=== PATIENT | male | born 1960 | race Caucasian/White ===

== ENCOUNTER → 2016-11-04 | Day surgery (SDC) | payer MEDICARE ==
[~2016-11-04] MED LIST: ASPIRIN81 MG PO; CLOPIDOGREL75 MG PO; DAZIDOX10 MG PO; DESYREL100 MG PO; FLEXERIL PO; LAMOTRIGINE100 MG PO; LIPITOR40 MG PO; MOBIC PO; MULTIVITAMIN1 UDCAP PO; NEURONTIN300 MG PO; NITROGLYCERIN0.4 MG SL; OXYCONTIN40 MG PO; PLAVIX PO; TIZANIDINE HCL4 M1 PO
--- NOTE | ~2016-11-04 | OR ---
Unit #: [id number] #: [id number] Patient: SOCORRO BALDERAS [id number] [address] [place], [place] [address] [id number] MR#: [id number] NAME: SOCORRO BALDERAS ROOM: Date of Procedure: 11/04/2016 Admission Date: 11/04/2016 Surgeon: Mendoza Daniel M.D. : 1960 Attending Physician: Mendoza Daniel M.D. Primary Care Physician: Theo Metzger M.D. OPERATIVE REPORT PREOPERATIVE DIAGNOSES Postlumbar fusion, degenerative disk disease, spinal stenosis, back pain, radiculopathy. POSTOPERATIVE DIAGNOSES Postlumbar fusion, degenerative disk disease, spinal stenosis, back pain, radiculopathy. PROCEDURE PERFORMED Caudal epidural steroid injection with intravenous sedation and fluoroscopic guidance for needle localization. INDICATIONS FOR PROCEDURE The patient is a 55-year-old male with previously mentioned diagnosis. He had a lumbar fusion, but unfortunately there is a pseudoarthrosis causing chronic pain. Year ago, he was treated a caudal epidural steroid injection and was given the first significant relief he has gotten in many many years. He had 80% relief for several months and then had return of the symptoms. He is not follow up until recently. He is treated medically as well. Based on his good response, we are going to proceed with a repeat caudal epidural steroid injection at this point and he may need on a p.r.n. basis going forward. DESCRIPTION OF PROCEDURE The patient was placed in a prone position. Standard monitors were applied. 4 mg of Versed were given for sedation and anxiolysis, which were adequate. Vital signs remained stable. Sterile prep and drape of the sacral area was then performed. The skin then overlying the sacral hiatus was localized with 1% lidocaine. An 18-gauge [employer] needle was then advanced via loss of resistance technique and via the sacral hiatus. After confirming proper positioning with fluoroscopy and radiographic contrast, 80 mg of Depo-Medrol and 6 mL of 0.125% bupivacaine were deposited. The patient tolerated the procedure otherwise well and was discharged to the recovery room in stable condition. Dictated by... Mendoza Daniel M.D. LHP/usman TD: 11/04/2016 23:19 Unit #: [id number] #: [id number] Patient: SOCORRO BALDERAS JOB #: [id number] OPERATIVE REPORT Page 1 of 1 X Mendoza Daniel MD X PROCEDURE OPERATIVE NOTE
== END | disposition home or self-care (01) ==
LOC: CCSC 10:21
DX: G89.29 Other chronic pain (principal); S32.10XA Unspecified fracture of sacrum, initial encounter for closed fracture; Z98.1 Arthrodesis status; X58.XXXA Exposure to other specified factors, initial encounter
CPT/HCPCS: J1040; J2250